=== PATIENT | male | born 1985 | race Caucasian/White ===

== ENCOUNTER 2020-01-04 21:52 | Emergency (ER) | payer MEDICAID ==
[~2020-01-04] VITALS: Ht 190.5 cm; Wt 163.3 kg
[2020-01-04 21:57] VITALS: BP_SYST 166
--- NOTE | 2020-01-04 21:59 | NUR ---
Placed in room 04 . Placed on handcrew foreman, blood pressure machine and pulse oximeter. To gown for exam. Side rails up. Report given to Babar MACDONALD.
--- NOTE | 2020-01-04 22:05 | NUR ---
Pt AAOx4 ambulated into ED c/o difficutly breathing x 5 days with acute exacerbation today s/p walking 1/4 mile prior to arrival. Pt denies n/v/d/pain. Sao2 100% on RA. Reports he feels he may have anxiety, but is not diagnosed. Skin pink dry and warm, breathing even and unlabored. No other injuries/complaints per pt/noted. Will continue to monitor.
--- NOTE | 2020-01-04 22:15 | NUR ---
ER Dr. Way at bedside examining patient.
[2020-01-04] MEDS ORDERED: NACL 0.9% 1,000 ML IV ONE (22:16)
--- NOTE | 2020-01-04 22:44 | NUR ---
Pt ambulated to bathroom with steady gait to provide urine sample
[2020-01-04 22:51] LABS: BASOPHILS # (AUTO) 0.1 K/uL (0.0-0.2); BASOPHILS % (AUTO) 0.6 % (0.0-2.0); EOSINOPHILS % (AUTO) 0.5 % (0.0-4.0); HEMOGLOBIN 15.5 g/dL (14.0-18.0); LYMPHOCYTES # (AUTO) 2.9 K/uL (1.0-5.5); MEAN CORPUSCULAR HEMOGLOBIN 29 pg (27-31); MEAN CORPUSCULAR HGB CONC 34 % (32-36); MEAN CORPUSCULAR VOLUME 85 fL (79.0-98.0); MONOCYTES # (AUTO) 0.3 K/uL (0.0-1.0); MONOCYTES % (AUTO) 3.6 % (1.7-9.3); NEUTROPHILS % (AUTO) 60.3 % (40.0-70.0); PLATELET COUNT (AUTO) 217 K/uL (130-430); RED CELL DISTRIBUTION WIDTH 13.7 % (9.0-15.0); WHITE BLOOD COUNT (AUTO) 8.3 K/uL (4.8-10.8)
--- NOTE | 2020-01-04 22:54 | NUR ---
IV NS 1000ml initiated at 100ml/hr. Pt tolerated well. No adverse reactions noted.
[2020-01-04 23:02] LABS: BILIRUBIN,URINE NEGATIVE (NEGATIVE); BLOOD, URINE NEGATIVE (NEGATIVE); CALCIUM 8.1 mg/dL (8.4-11.0); CLARITY/URINE CLEAR (CLEAR); COLOR,URINE YELLOW (YELLOW); CREATININE 1.27 mg/dL (0.55-1.30); GLUCOSE,URINE NEGATIVE (NEGATIVE); KETONES,URINE NEGATIVE (NEGATIVE); LEUKOCYTE ESTERASE ,URINE NEGATIVE (NEGATIVE); NITRITE, URINE NEGATIVE (NEGATIVE); POTASSIUM 3.3 mmol/L (3.5-5.1); PROTEIN URINE NEGATIVE (NEGATIVE); UROBILINOGEN,URINE 0.2 (0.2-1.0)
[2020-01-04 23:08] LABS: ALBUMIN 3.7 g/dL (3.4-4.8); INR 0.9 (0.80-1.20); PROTHROMBIN TIME 9.3 SECS (9.5-12.5); TOTAL BILIRUBIN 0.4 mg/dL (0.0-1.0)
--- NOTE | 2020-01-04 23:15 | NUR ---
B/P 204/103, P 121, SPO2 97%. Pt denies c/o C/P or SOB. Dr. Way notified about V/S.
[2020-01-04 23:23] LABS: BARBITURATE, URINE NEGATIVE (NEG <=200); BENZODIAZEPINE, URINE NEGATIVE (NEG <=150); CANNABINOID, URINE POSITIVE (NEG <=50); COCAINE, URINE NEGATIVE (NEG <=150); METHAMPHETAMINES SCREEN,URINE NEGATIVE (NEG <=500); OPIATE, URINE NEGATIVE (NEG <=100); PHENCYCLIDINE SCREEN,URINE NEGATIVE (NEG <=25); UR TRICYCLIC ANTIDEPRESSANTS NEGATIVE (NEG <=300); URINE AMPHETAMINE NEGATIVE (NEG <=500); URINE METHADONE NEGATIVE (NEG <=200); URINE OXYCODONE SCREEN NEGATIVE (NEG <=100); URINE PROPOXYPHENE SCREEN NEGATIVE (NEG <=300)
[2020-01-04] MEDS ORDERED: LABETALOL 100 MG/ 20ML VIAL IVP ONE (23:30)
--- NOTE | 2020-01-04 23:48 | NUR ---
B/P 162/93, HR 102, SPO2 97%. Dr. Way made aware.
[2020-01-05] MEDS ORDERED: LABETALOL 100 MG/ 20ML VIAL IVP ONE
--- NOTE | 2020-01-05 00:25 | NUR ---
B/P 150/90, P 90, R 18, SPO2 97% RA. Pt denies c/o C/P or SOB. Dr. Way made aware and pt to be discharged.
[2020-01-05 00:28] VITALS: BP_SYST 150
--- NOTE | 2020-01-05 00:28 | NUR ---
Patient given written and verbal discharge instructions and verbalizes understanding. ER MD discussed with patient the results and treatment provided. Patient in stable condition. ID arm band removed. IV catheter removed intact and dressing applied, no active bleeding. Rx of Lisinopril given. Patient educated on pain management and to follow up with PMD. Pain Scale 0/10. Opportunity for questions provided and answered. Medication side effect fact sheet provided.
== END 2020-01-05 00:28 | disposition home or self-care (01) ==
LOC: SED 21:52
DX: I10 Essential (primary) hypertension (principal); Z91.018 Allergy to other foods
CPT/HCPCS: 36415; 71045; 80053; 80307; 81003; 83880; 84484; 85025; 85610; 85730; 93005; 96374; 99285; J3490; J7030